=== PATIENT | female | born 1950 ===

== ENCOUNTER 2018-11-14 16:36 | Inpatient (IN) ==
[2018-11-14] MEDS ORDERED: IOPAMIDOL 100 ML BOTTLE IV ONE (16:37)
--- NOTE | 2018-11-14 16:58 | Emergency Department Note ---
Weakness HPI - General Chief complaint: Weakness Stated complaint: weakness Time Seen by Provider: 11/14/18 16:42 Source: patient Mode of arrival: EMS Limitations: no limitations - History of Present Illness HPI Narrative: Brought in by ambulance with a history of generalized weakness. History is obtained from the as well as from the patient. She's had a downhill course in the last several weeks with progressive weakness, right-sided back pa in but not able to do very much other than walk from the bed to the bathroom. According to the she has been in bed mostly for the last few years. History of fairly severe and advanced COPD, quit smoking 2 years ago. Won't put on any weight. When EMS got there today they were unable to get a good reading on the oximeter. She was breathing rapidly. O2 sats were 79% on room air here in the ED. MD Complaint: generalized weakness - Related Data Home Medications Medication Instructions Recorded Confirmed Aspirin/Acetaminophen/Caffeine 1 each PO QDAY 11/14/18 11/14/18 [Excedrin Migraine Caplet] Allergies Allergy/AdvReac Type Severity Reaction Status Date / Time morphine AdvReac Mild Vomiting Verified 11/14/18 18:14 METAL AdvReac Mild RASH Uncoded 02/17/15 03:56 Review of Systems Constitutional: Reports: weakness, weight change. Denies: fever, chills Cardiovascular: Reports: palpitations, dyspnea on exertion Respiratory: Reports: shortness of breath. Denies: cough Past Medical History - Past Medical History Attestation: Yes: The following information was validated with the patient. Source: obtained from family, nursing notes reviewed Medical history: Reports: COPD Surgical history ED: Reports: appendectomy, hysterectomy, tubal ligation, other (surgery for ovarian cyst) Family history: Reports: non-contributory - Social History smoking status: Former smoker Alcohol use: Reports: Rarely Drug use: Reports: none Physical Exam Very frail and weak appearing 68-year-old female brought in by EMS. Limitations: no limitations General appearance: alert Head: atraumatic, normocephalic, normal inspection, other (servin hair and somewhat coarse) Eye: Present: normal appearance, PERRL. Absent: scleral icterus ENT: normal exam, normal oropharynx, mucous membranes dry, other (halitosis and caries) Neck: Present: normal inspection, full ROM Chest: Present: normal inspection, other (Lindsey Tracy thorax, thoracic kyphosis.) Respiratory: Present: respiratory distress, accessory muscle use. Absent: wheez es Cardiovascular: Present: regular rate, normal heart sounds Abdominal: Present: soft. Absent: distention, tenderness, guarding, rebound, rigidity Extremities: Present: full ROM, other (very thin and cachectic appearing and she has a chronic scab and eschar to the right anterior knee). Absent: pedal edema, pretibial edema Back: Present: normal inspection, CVA tenderness (R). Absent: CVA tenderness (L) Neurological: Present: alert, CN II-XII intact, other (very weak in general. Barely able to lift her legs against gravity.). Absent: motor sensory deficit, reflexes normal Psychiatric: Present: normal affect Skin: Present: warm, dry, intact. Absent: rash Course Vital Signs Temperature 98.0 F 11/14/18 16:36 Pulse Rate 105 H 11/14/18 16:36 Respiratory Rate 30 H 11/14/18 16:36 Blood Pressure 146/91 11/14/18 16:36 Pulse Oximetry (%) 90 11/14/18 16:36 Temperature 99.7 F H 11/14/18 17:36 Pulse Rate 112 H 11/14/18 20:16 Respiratory Rate 30 H 11/14/18 19:46 Blood Pressure 109/68 11/14/18 20:46 Pulse Oximetry (%) 93 11/14/18 20:16 Weakness - MDM Narrative Medical decision making narrative: Labs and x-rays reviewed. A CT scan showing atelectasis in the lower lobe, severe pulmonary hypertension, no PE. Cussed with Dr. Jorge. Plan we will treat her with steroids, breathing treatments. Discussed with Dr. Castellano. - Lab Data Result diagrams: 11/14/18 17:17 11/14/18 17:17 Lab Results 11/14/18 11/14/18 11/14/18 Range/Units 17:17 17:17 17:17 WBC 10.7 (4.5-11.0) K/mcL RBC 4.92 (4.00-5.20) M/mcL Hgb 14.6 (12.0-15.0) g/dL Hct 47.0 (36.0-48.0) % MCV 95.5 (80.0-100.0) fL MCH 29.6 (26.0-34.0) pg MCHC 31.0 (31.0-36.0) g/dL RDW 15.6 H (11.5-14.5) % Plt Count 260 (140-440) K/mcL MPV 9.2 (7.4-10.4) fL Gran % 74.5 (38.0-78.0) % Lymph % (Auto) 17.8 (15.5-49.0) % [place] % (Auto) 5.6 (1.0-12.0) % Eos % (Auto) 1.8 (0.0-7.0) % Baso % (Auto) 0.3 (0.0-2.0) % Gran # 8.0 (1.8-8.0) K/mcL Lymph # (Auto) 1.9 (1.5-4.8) K/mcL [place] # (Auto) 0.6 (0.1-0.9) K/mcL Eos # (Auto) 0.2 (0.0-0.7) K/mcL Baso # (Auto) 0 (0.0-0.3) K/mcL Sodium 143 (133-145) mmol/L Potassium 4.8 (3.3-5.1) mmol/L Chloride 103 (96-108) mmol/L Carbon Dioxide 30 (22-30) mmol/L Anion Gap 10.0 (8-16) BUN 14 (8-23) mg/dl Creatinine 0.5 L (0.6-1.1) mg/dl GFR Calculation 101 Glucose 110 H (70-105) mg/dL Calcium 9.6 (8.6-10.4) mg/dl Total Bilirubin 0.5 (0.0-1.0) mg/dL AST 25 (0-37) U/l ALT 6 (0-40) U/l Alkaline Phosphatase 60 (39-117) U/L Troponin T (0-0.03) ng/ml NT-Pro-B Natriuret Pep 4351.0 H (0-125) pg/ml Total Protein 6.9 (5.9-8.4) gm/dL Albumin 3.6 (3.2-5.2) gm/dL Globulin 3.3 (2.2-3.7) gm/dL Albumin/Globulin Ratio 1.1 (1.0-2.3) Procalcitonin < 0.05 (<0.10) ng/mL Urine Color Urine Appearance Urine pH (5.0-9.0) Ur Specific [place] (1.000-1.035) Urine Protein (NEG) mg/dL Urine Glucose (UA) (NEG) mg/dL Urine Ketones (NEG) mg/dL Urine Occult Blood (<0.03) mg/dL Urine Nitrate (NEG) Urine Bilirubin (NEG) mg/dL Urine Urobilinogen (NEG) mg/dL Ur Leukocyte Esterase (NEG) /uL Urine RBC (0-1) /hpf Urine WBC (0-4) /hpf Ur Squamous Epith Cells (0-4) /hpf Ur Transition Epith Cell (0-2) /hpf Amorphous Crystals (0) /hpf Urine Bacteria (0) /hpf Urine Mucus (0) /hpf Ur Culture Indicated? 11/14/18 11/14/18 Range/Units 17:17 19:33 WBC (4.5-11.0) K/mcL RBC (4.00-5.20) M/mcL Hgb (12.0-15.0) g/dL Hct (36.0-48.0) % MCV (80.0-100.0) fL MCH (26.0-34.0) pg MCHC (31.0-36.0) g/dL RDW (11.5-14.5) % Plt Count (140-440) K/mcL MPV (7.4-10.4) fL Gran % (38.0-78.0) % Lymph % (Auto) (15.5-49.0) % [place] % (Auto) (1.0-12.0) % Eos % (Auto) (0.0-7.0) % Baso % (Auto) (0.0-2.0) % Gran # (1.8-8.0) K/mcL Lymph # (Auto) (1.5-4.8) K/mcL [place] # (Auto) (0.1-0.9) K/mcL Eos # (Auto) (0.0-0.7) K/mcL Baso # (Auto) (0.0-0.3) K/mcL Sodium (133-145) mmol/L Potassium (3.3-5.1) mmol/L Chloride (96-108) mmol/L Carbon Dioxide (22-30) mmol/L Anion Gap (8-16) BUN (8-23) mg/dl Creatinine (0.6-1.1) mg/dl GFR Calculation Glucose (70-105) mg/dL Calcium (8.6-10.4) mg/dl Total Bilirubin (0.0-1.0) mg/dL AST (0-37) U/l ALT (0-40) U/l Alkaline Phosphatase (39-117) U/L Troponin T < 0.01 (0-0.03) ng/ml NT-Pro-B Natriuret Pep (0-125) pg/ml Total Protein (5.9-8.4) gm/dL Albumin (3.2-5.2) gm/dL Globulin (2.2-3.7) gm/dL Albumin/Globulin Ratio (1.0-2.3) Procalcitonin (<0.10) ng/mL Urine Color Yellow Urine Appearance Cloudy Urine pH 5.0 (5.0-9.0) Ur Specific [place] 1.020 (1.000-1.035) Urine Protein 100 A (NEG) mg/dL Urine Glucose (UA) Negative (NEG) mg/dL Urine Ketones 5/tr A (NEG) mg/dL Urine Occult Blood >=1.0 A (<0.03) mg/dL Urine Nitrate Neg (NEG) Urine Bilirubin Neg (NEG) mg/dL Urine Urobilinogen 2.0 A (NEG) mg/dL Ur Leukocyte Esterase 25 A (NEG) /uL Urine RBC > 182 H (0-1) /hpf Urine WBC 30 H (0-4) /hpf Ur Squamous Epith Cells 0 (0-4) /hpf Ur Transition Epith Cell 1 (0-2) /hpf Amorphous Crystals Many A (0) /hpf Urine Bacteria Few A (0) /hpf Urine Mucus Mod (0) /hpf Ur Culture Indicated? Yes Disposition Pt seen by ADMINISTRATIVE PROCESSOR/PA only: No Clinical Impression: COPD exacerbation Disposition: Xfer As Inpt ([facility]) Condition: Fair Referrals: Enoch Bui MD [Primary Care Provider] -
[2018-11-14] MEDS ORDERED: LACTATED RINGERS 1,000 ML IV ONE (17:02)
[2018-11-14 17:57] LABS: Basophils # (Auto) 0 K/mcL (0.0-0.3); Basophils % (Auto) 0.3 % (0.0-2.0); Eosinophils # (Auto) 0.2 K/mcL (0.0-0.7); Eosinophils % (Auto) 1.8 % (0.0-7.0); Granulocytes % (Auto) 74.5 % (38.0-78.0); Lymphocytes # (Auto) 1.9 K/mcL (1.5-4.8); Lymphocytes % (Auto) 17.8 % (15.5-49.0); Mean Cell Volume 95.5 fL (80.0-100.0); Monocytes # (Auto) 0.6 K/mcL (0.1-0.9); Monocytes % (Auto) 5.6 % (1.0-12.0); Platelet Count 260 K/mcL (140-440); RBC 4.92 M/mcL (4.00-5.20); Red Cell Distribution Width 15.6 % (11.5-14.5)
[2018-11-14] MEDS ORDERED: IPRATROPIUM/ALBUTEROL 3 ML AMPUL.NEB NEB ONE (18:14)
[2018-11-14 18:23] LABS: ALT/SGPT 6 U/l (0-40); Albumin 3.6 gm/dL (3.2-5.2); Albumin/Globulin Ratio 1.1 (1.0-2.3); Alkaline Phosphatase 60 U/L (39-117); Blood Urea Nitrogen 14 mg/dl (8-23)
--- NOTE | 2018-11-14 19:18 | XRay Report ---
CLINICAL INFORMATION: dyspnea COMPARISON: 05/05/2008 FINDINGS: Films taken in extreme right rotation accentuates the cardiomediastinal silhouette. The pulmonary arteries are mildly enlarged compatible with pulmonary hypertension. Moderate COPD changes are noted. Mild bibasilar atelectasis noted - no definite infiltrate IMPRESSION: Moderate COPD with pulmonary hypertension. Mild bibasilar atelectasis Interpreted and Authenticated by: Jak Zaidi 11/14/18
[2018-11-14 20:52] LABS: Appearance,Urine CLOUDY; Bacteria,Urine FEW /hpf (0); Bilirubin,Urine NEG (NEG); Color,Urine YELLOW; Glucose,Urine (UA) NEGATIVE (NEG); Leukocyte Esterase,Urine 25 /uL (NEG); Mucus,Urine MOD /hpf (0); Protein,Urine 100 mg/dL (NEG); Urine Amorphous Crystals MANY /hpf (0); Urine Blood >=1.0 mg/dL (<0.03); Urine RBC > 182 /hpf (0-1); Urine Squamous Epithelial Cell 0 /hpf (0-4); Urine Transitional Epi Cells 1 /hpf (0-2); Urine WBC 30 /hpf (0-4)
[2018-11-14] MEDS ORDERED: methylPREDNISolone SOD SUCC 40 MG/ML VIAL IV ONE (20:55)
--- NOTE | 2018-11-14 20:55 | Cat Scan Report ---
CLINICAL INFORMATION: Worsening dyspnea COMPARISON: None. TECHNIQUE: 80 cc of Isovue-300 were injected intravenously, and 25 seconds later, 0.625 mm helical slices were obtained from the lung apices through the bases. Following reconstruction, 2.5 mm sagittal, coronal and axial reformations were processed and reviewed at lung, mediastinal and bone windows. 7 mm axial MIPS were also obtained to optimize pulmonary nodule detection. The exam was performed using radiation dose optimization techniques including, but not limited to, automated exposure control, adjustment of the mA and/or kV according to patient size and use of iterative reconstruction technique. FINDINGS: Pulmonary parenchymal windows show severe centrilobular emphysema: There are multiple large bullae within the upper lobes and also scattered about the periphery of both lower and right middle lobes. The lung volumes are elevated and there is wall thickening of the bronchi compatible with chronic bronchitis. Scattered scarring is seen throughout both mid and lower lungs. In the periphery of both upper and lower lobes, there is scattered groundglass attenuation and mild interstitial disease with mild thickening of the interlobular septa. 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 There are no nodules or regional infiltrates. There is mild atelectasis in both posterior dependent lower lobes. No effusions. The heart is mildly enlarged with asymmetric enlargement of the right atrium and ventricle compatible with elevated right heart pressures related to pulmonary hypertension. The central pulmonary arteries are enlarged: main pulmonary artery is 3.4 cm. There is no adenopathy in the mediastinal, hilar or axillary regions. The thyroid is normal. Esophagus is unremarkable. Bones and soft tissues of the chest wall are normal. IMPRESSION: 1. Severe centrilobular emphysema. 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 These are known chronic inflammatory diseases associated with smoking. They may respond to steroid and smoking cessation. 2. Moderate enlargement of the central pulmonary arteries and asymmetric enlargement of the right heart chambers compatible with pulmonary hypertension related to COPD. Interpreted and Authenticated by: Jak Zaidi 11/14/18
[2018-11-14] MEDS ORDERED: cefTRIAXone 1 GM VIAL IV ONE (20:56)
[2018-11-14 20:58] LABS: Free T4 (Free Thyroxine) 1.14 ng/dl (0.7-1.7)
--- NOTE | 2018-11-14 21:16 | Internal Med History&Physical ---
Medical - H&P: [facility] Patient information: Note initiated : 11/14/18 at 9:16 pm Service Date, if different from initiated Date: [] Patient: Yvonne Rapp a 68 y/o F admitted on for weakness. Chief Complaint: [] Chief complaint: SOB History of present illness: Ms. Rapp is a 68 year old F with known history of COPD who lives with her Anurag. She presents to the ER with worsening weakness and progressive shortness of breath over the last couple of weeks. Patient carries a long history of smoking however quit 2 years ago. She does not follow with primary care physician. She is currently on occasional albuterol for shortness of breath. Patient also has associated significant weight loss with a BMI of 12. As per as per and she has been getting worse over the last 6 years with increasing exertional shortness of breath limiting her functional abilities. She has had significant weight loss and currently with a BMI of 12. She has associated dysphagia and also endorses to early satiety. She denies abdominal pain associated with feeding. She had a history of gastric ulcer but over the last 10 years she has not sought any medical attention and discontinued all her medications and has a strong feeling that God will heal her. She occasionally takes Excedrin for headaches. Her dyspnea has progressed to the point she could barely talk prompting her to come to the ER. Initial workup was significant for sats and 79% along with CT chest consistent with emphysema/bronchiolitis.. She denies sick contacts or fever chills, she denies rash or joint pain, she endorses to minimal plaque productive sputum. She does not use oxygen. Review of systems A 10 point review systems was performed and is negative except for as discussed above Medical - H&P: PMH Medical history: Emphysema/COPD History of gastric ulcer Severe weight loss Headache Social history: Over 80 pack history smoking quit in 2017 to Anurag Rapp Retired nurse Medical - H&P: Meds Home Medications Medication Instructions Recorded Confirmed Type Aspirin/Acetaminophen/Caffeine 1 each PO QDAY 11/14/18 11/14/18 History [Excedrin Migraine Caplet] Allergies Allergy/AdvReac Type Severity Reaction Status Date / Time morphine AdvReac Mild Vomiting Verified 11/14/18 18:14 METAL AdvReac Mild RASH Uncoded 02/17/15 03:56 Medical - H&P: Exam - Constitutional Vitals: Temp Pulse Resp BP Pulse Ox 99.7 F H 42 L 30 H 104/63 69 L 11/14/18 17:36 11/14/18 21:01 11/14/18 19:46 11/14/18 21:01 11/14/18 21:01 General appearance: moderate distress, thin Exam: Pupils symmetric Sunken eyes, temporal wasting Oral cavity dry No ear or nose discharge Head normocephalic No lymphadenopathy S1 and S2 regular rhythm Diminished breath sounds in bases, expiratory rhonchi Skin no suspicious lesion, skin full-thickness 5 mm Psych alert cooperative Neuro nonfocal Abdomen soft Medical - H&P: Reslt - Labs CBC & Chem 7: 11/17/18 03:35 11/17/18 03:35 Labs: Short CBC 11/14/18 Range/Units 17:17 WBC 10.7 (4.5-11.0) K/mcL Hgb 14.6 (12.0-15.0) g/dL Hct 47.0 (36.0-48.0) % Plt Count 260 (140-440) K/mcL BMP 11/14/18 17:17 Sodium 143 Potassium 4.8 Chloride 103 Carbon Dioxide 30 BUN 14 Creatinine 0.5 L Glucose 110 H Calcium 9.6 Cardiac Enzymes 11/14/18 Range/Units 17:17 Troponin T < 0.01 (0-0.03) ng/ml Liver Function 11/14/18 Range/Units 17:17 Total Bilirubin 0.5 (0.0-1.0) mg/dL AST 25 (0-37) U/l ALT 6 (0-40) U/l Alkaline Phosphatase 60 (39-117) U/L Albumin 3.6 (3.2-5.2) gm/dL Urine 11/14/18 Range/Units 19:33 Urine Color Yellow Urine Appearance Cloudy Urine pH 5.0 (5.0-9.0) Ur Specific [place] 1.020 (1.000-1.035) Urine Protein 100 A (NEG) mg/dL Urine Glucose (UA) Negative (NEG) mg/dL Medical - H&P: A/P (1) COPD exacerbation Problem details: Improving and responding to treatment. Current visit: Yes Status: Acute * Acute COPD exacerbation-continue steroids, bronchodilators and pulmonary toilet * bronchiolitis-bronchodilators/carbon grinder/antibiotic * Severe weight loss nutrition consult * DVT prophylaxis heparin Plan * COPD management per guidelines * Dietary consult * PT OT eval * Watch for refeeding syndrome * Weight loss workup
[2018-11-14 21:55] LABS: C-Reactive Protein 0.6 mg/dl (0.0-0.8)
[2018-11-14] MEDS ORDERED: MAGNESIUM SULFATE 2 GM/50 ML BAG IV PRN (21:59)
[2018-11-14] MEDS ORDERED: ACETAMINOPHEN 325 MG TABLET PO PRN (21:59)
[2018-11-14] MEDS ORDERED: POTASSIUM CHLORIDE 20 MEQ PACKET PO PRN (21:59)
[2018-11-14] MEDS ORDERED: ONDANSETRON 4 MG/2 ML VIAL IV PRN (21:59)
[2018-11-14] MEDS ORDERED: ACETAMINOPHEN 1,000 MG/100 ML BOTTLE IV PRN (22:55)
[2018-11-14] MEDS: 0.9 % SODIUM CHLORIDE 10 ML SYRINGE IV SCH (22:57)
[2018-11-14] MEDS: IPRATROPIUM/ALBUTEROL 3 ML AMPUL.NEB NEB SCH (23:00)
[2018-11-14] MEDS: LEVOFLOXACIN 750 MG/150 ML BAG IV SCH (23:26)
[2018-11-15 05:07] LABS: Mean Cell Volume 96.5 fL (80.0-100.0); Mean Corpuscular HGB Conc 31.3 g/dL (31.0-36.0); Platelet Count 218 K/mcL (140-440); RBC 4.44 M/mcL (4.00-5.20); Red Cell Distribution Width 15.6 % (11.5-14.5)
[2018-11-15 05:37] LABS: ALT/SGPT 5 U/l (0-40); Albumin 3.2 gm/dL (3.2-5.2); Albumin/Globulin Ratio 1.1 (1.0-2.3); Alkaline Phosphatase 51 U/L (39-117); Bilirubin,Direct < 0.2 mg/dL (0.0-0.3); Blood Urea Nitrogen 12 mg/dl (8-23); Gamma Glutamyl Transpeptidase 19 U/L (5-36)
[2018-11-15] MEDS: IPRATROPIUM/ALBUTEROL 3 ML AMPUL.NEB NEB SCH ×6 (05:40→23:06)
[2018-11-15] MEDS: 0.9 % SODIUM CHLORIDE 10 ML SYRINGE IV SCH ×3 (05:41→20:42)
[2018-11-15 05:45] LABS: Band Neutrophils % 1 % (0-10); Lymphocytes % 6 % (15-49); Platelet Estimate NORMAL (NORMAL); RBC Morphology NORMAL (NORMAL); Segmented Neutrophils % 93 % (38-78)
[2018-11-15] MEDS: ACETAMINOPHEN 1,000 MG/100 ML BOTTLE IV PRN (09:19)
--- NOTE | 2018-11-15 09:23 | Internal Med Progress Note ---
Medical - PN: Subj Patient information: Note initiated : 11/15/18 at 9:21 am Service Date, if different from initiated Date: [] Patient: Yvonne Rapp a 68 y/o F admitted on 11/14/18 for weakness. Chief Complaint: [] Interval history: Ms. Rapp is a 68 year old F who lives with her Anurag. She presents to the ER with worsening weakness/loss of appetite and progressive shortness of breath over the last couple of weeks. Patient carries a long history of smoking however quit 2 years ago. She does not follow with primary care physician. She is currently on occasional albuterol for shortness of breath. As per as per and she has been getting worse over the last 6 years with increasing exertional shortness of breath limiting her functional abilities. She is also dramatically lost weight loss of appetite and currently weighs around 70 pounds. She denies dysphagia but endorses early satiety. She denies abdominal pain associated with feeding. She had a history of gastric ulcer but over the last 10 years she has not sought any medical attention and discontinued all her medications and has a strong feeling that God will heal her. She occasionally takes Excedrin for headaches. Shortness of breath is to the point she could barely talk prompting her to come to the ER. Initial workup was significant for sats and 79% along with CT chest consistent with emphysema/bronchiolitis.. She denies sick contacts or fever chills, she denies rash or joint pain, she endorses to minimal plaque productive sputum. She does not use oxygen. 3/3-persistent shortness of breath. Ongoing bronchodilators. CT evidence of bronchiolitis/emphysema. Nutrition consult. at bedside. Intermittent headache - Constitutional Vitals: Vital Signs Temp Pulse Resp BP Pulse Ox 100.1 F H 102 H 20 85/51 92 11/14/18 21:59 11/15/18 07:19 11/15/18 07:19 11/15/18 04:01 11/15/18 05:39 Period Temp Pulse Resp BP Sys/Trimble Pulse Ox Last 24 Hr 98.0 F-100.1 F 42-117 20-35 85-164/51-121 52-99 Intake and Output 11/14/18 11/15/18 11/15/18 21:59 05:59 13:59 Intake Total 1000 0 Output Total 150 Balance 1000 -150 Weight 68 lb 1.6 oz 68 lb 1.6 oz Intake & Output: Intake & Output 11/14/18 11/15/18 11/15/18 21:59 05:59 13:59 Intake Total 1000 0 Output Total 150 Balance 1000 -150 Weight 68 lb 1.6 oz 68 lb 1.6 oz Intake: IV 1000 Lactated Ringers 1,000 ml @ 1000 Wide Open IV .Q0M ONE Rx#: [id number] Oral 0 0 Output: Void Amount 150 General appearance: moderate distress (headache), thin Exam: Persistent shortness of breath with pursed lip breathing Anxious Prolonged expiratory rhonchi Scaphoid abdomen Medical - PN: Obj Da - Labs CBC & Chem 7: 11/15/18 03:41 11/15/18 03:41 Labs: Abnormal Lab Results 11/15/18 11/15/18 11/14/18 03:41 03:41 19:33 RDW 15.6 H Seg Neutrophils % 93 H Lymphocytes % 6 L Creatinine 0.4 L Glucose NT-Pro-B Natriuret Pep TSH Urine Protein 100 A Urine Ketones 5/tr A Urine Occult Blood >=1.0 A Urine Urobilinogen 2.0 A Ur Leukocyte Esterase 25 A Urine RBC > 182 H Urine WBC 30 H Amorphous Crystals Many A Urine Bacteria Few A 11/14/18 11/14/18 11/14/18 17:17 17:17 17:17 RDW 15.6 H Seg Neutrophils % Lymphocytes % Creatinine 0.5 L Glucose 110 H NT-Pro-B Natriuret Pep 4351.0 H TSH 10.65 H Urine Protein Urine Ketones Urine Occult Blood Urine Urobilinogen Ur Leukocyte Esterase Urine RBC Urine WBC Amorphous Crystals Urine Bacteria Meds: Medications Acetaminophen (Tylenol) 650 mg PO Q4-6HP PRN PRN Reason: PAIN/FEVER > 101 Albuterol/Ipratropium (Duoneb) 3 ml NEB Q4HRT [facility] Last Admin: 11/15/18 07:17 Dose: 3 ml Documented by: Docusate Sodium (Colace) 100 mg PO BID [facility] Heparin Sodium (Porcine) (Heparin) 5,000 unit SQ Q12 [facility] Levofloxacin (Levaquin) 750 mg in 150 mls @ 100 mls/hr IV Q24H [facility] Last Admin: 11/14/18 23:26 Dose: 100 mls/hr Documented by: Magnesium Sulfate (Magnesium Sulfate) 2 gm in 50 mls @ 50 mls/hr IV UD PRN PRN Reason: MG = or < 1.7 Acetaminophen (Ofirmev) 1,000 mg in 100 mls @ 200 mls/hr IV Q6HP PRN PRN Reason: PAIN/FEVER > 101 Last Admin: 11/15/18 09:19 Dose: 200 mls/hr Documented by: Iron Carb/Multivit/Steward/[employer] Car/Folic Acid (Multivitamin W/Minerals) 1 tab PO DAILY [facility] Methylprednisolone Sodium Succinate (Solu-Medrol) 40 mg IV Q12 [facility] Ondansetron HCl (Zofran) 4 mg IV Q4-6HP PRN PRN Reason: Nausea And Vomiting Pantoprazole Sodium (Protonix) 40 mg IV QAMAC [facility] Aspirin/Acetaminophen/Caffeine [Excedrin Migraine] Cap 1 dose PO QDAY [facility] Potassium Chloride (Klor-Con) 40 meq PO DAILYP PRN PRN Reason: K+ < 3.5 Senna/Docusate Sodium (Senna Plus Tablet) 1 tab PO HS [facility] Sodium Chloride (Saline Flush) 10 ml IV Q8 [facility] Last Admin: 11/15/18 05:41 Dose: 10 ml Documented by: Medical - PN: A/P - Time Spent With Patient Total time spent is greater than 50% in coordination of care (as documented) at patient's floor/unit and/or counseling patient: 25 - 35 minutes (1) COPD exacerbation Status: Acute Assessment and plan: * Acute COPD exacerbation-continue IV steroids, bronchodilators and pulmonary toilet * bronchiolitis with interstitial pneumonitis-bronchodilators/IV steroids/antibiotic * Severe weight loss nutrition consult, start PPI, recommend outpatient GI follow-up/endoscopy * Anxiety * DVT prophylaxis heparin Plan * PT OT/nutrition support * COPD management per guidelines Current Visit: Yes Medical - PN: Qual - VTE Deep Vein Thrombosis/Pulmonary Embolism Present on Admission: No
[2018-11-15] MEDS: PANTOPRAZOLE 40 MG VIAL IV SCH (11:41)
[2018-11-15] MEDS: HEPARIN 5,000 UNIT/ML VIAL SQ SCH ×2 (11:41→20:42)
[2018-11-15] MEDS: methylPREDNISolone SOD SUCC 125 MG/2 ML VIAL IV SCH ×2 (11:41→20:41)
[2018-11-15] MEDS: MULTIVIT,THER IRON,CA,FA & MIN 1 TABLET PO SCH (11:57)
[2018-11-15] MEDS: DOCUSATE SODIUM 100 MG CAPSULE PO SCH ×2 (11:58→20:42)
[2018-11-15] MEDS: Aspirin/Acetaminophen/Caffeine [Excedrin Migraine] Cap PO SCH (12:03)
[2018-11-15] MEDS: LEVOFLOXACIN 750 MG/150 ML BAG IV SCH (15:36)
[2018-11-15] MEDS: SENNOSIDES/DOCUSATE SODIUM 1 TAB TABLET PO SCH (20:42)
[2018-11-16] MEDS: IPRATROPIUM/ALBUTEROL 3 ML AMPUL.NEB NEB SCH ×5 (03:24→18:52)
[2018-11-16 05:25] LABS: Mean Cell Volume 96.3 fL (80.0-100.0); Mean Corpuscular HGB Conc 31.9 g/dL (31.0-36.0); Platelet Count 207 K/mcL (140-440); RBC 4.16 M/mcL (4.00-5.20); Red Cell Distribution Width 15.4 % (11.5-14.5)
[2018-11-16] MEDS: 0.9 % SODIUM CHLORIDE 10 ML SYRINGE IV SCH ×3 (05:49→21:31)
[2018-11-16 06:06] LABS: ALT/SGPT 5 U/l (0-40); Albumin 3.3 gm/dL (3.2-5.2); Albumin/Globulin Ratio 1.2 (1.0-2.3); Alkaline Phosphatase 45 U/L (39-117); Bilirubin,Direct < 0.2 mg/dL (0.0-0.3); Blood Urea Nitrogen 15 mg/dl (8-23); Gamma Glutamyl Transpeptidase 16 U/L (5-36); Uric Acid 6.5 mg/dL (2.5-8.0)
[2018-11-16 07:00] LABS: Band Neutrophils % 1 % (0-10); Lymphocytes % 5 % (15-49); Platelet Estimate NORMAL (NORMAL); RBC Morphology NORMAL (NORMAL); Segmented Neutrophils % 94 % (38-78)
[2018-11-16] MEDS: PANTOPRAZOLE 40 MG VIAL IV SCH (07:45)
[2018-11-16] MEDS: methylPREDNISolone SOD SUCC 125 MG/2 ML VIAL IV SCH ×2 (09:13→21:29)
[2018-11-16] MEDS: HEPARIN 5,000 UNIT/ML VIAL SQ SCH ×2 (09:13→21:30)
[2018-11-16] MEDS: Aspirin/Acetaminophen/Caffeine [Excedrin Migraine] Cap PO SCH (09:13)
[2018-11-16] MEDS: LEVOFLOXACIN 750 MG/150 ML BAG IV SCH (09:13)
--- NOTE | 2018-11-16 09:29 | Internal Med Progress Note ---
Medical - PN: Subj Patient information: Note initiated : 11/16/18 at 9:27 am Service Date, if different from initiated Date: [] Patient: Yvonne Rapp a 68 y/o F admitted on 11/14/18 for weakness. Chief Complaint: [] Interval history: Ms. Rapp is a 68 year old F who lives with her Anurag. She presents to the ER with worsening weakness/loss of appetite and progressive shortness of breath over the last couple of weeks. Patient carries a long history of smoking however quit 2 years ago. She does not follow with primary care physician. She is currently on occasional albuterol for shortness of breath. As per as per and she has been getting worse over the last 6 years with increasing exertional shortness of breath limiting her functional abilities. She is also dramatically lost weight loss of appetite and currently weighs around 70 pounds. She denies dysphagia but endorses early satiety. She denies abdominal pain associated with feeding. She had a history of gastric ulcer but over the last 10 years she has not sought any medical attention and discontinued all her medications and has a strong feeling that God will heal her. She occasionally takes Excedrin for headaches. Shortness of breath is to the point she could barely talk prompting her to come to the ER. Initial workup was significant for sats and 79% along with CT chest consistent with emphysema/bronchiolitis.. She denies sick contacts or fever chills, she denies rash or joint pain, she endorses to minimal plaque productive sputum. She does not use oxygen. 3/3-persistent shortness of breath. Ongoing bronchodilators. CT evidence of bronchiolitis/emphysema. Nutrition consult. at bedside. Intermittent headache 3/4-patient doing better this morning. Able to talk in full sentences. Improved shortness of breath. 100 at bedside. No overnight telemetry events. Persistent dysphagia but however able to tolerate applesauce. ST eval/barium swallow ordered placed. Dysmotility/stricture. Would require upper endoscopy. No GI field artillery operations specialist today. We'll try to coordinate outpatient upper endoscopy for further evaluation of dysphagia. Continue physical therapy - Constitutional Vitals: Vital Signs Temp Pulse Resp BP Pulse Ox 97.8 F 100 H 20 107/67 95 11/16/18 08:00 11/16/18 08:00 11/16/18 08:00 11/16/18 08:00 11/16/18 08:00 Period Temp Pulse Resp BP Sys/Trimble Pulse Ox Last 24 Hr 97.8 F-98.4 F 95-112 18-24 87-107/56-68 94-98 Intake and Output 11/15/18 11/16/18 11/16/18 21:59 05:59 13:59 Intake Total 200 0 Output Total 475 Balance -275 0 Weight 69 lb Intake & Output: Intake & Output 11/15/18 11/16/18 11/16/18 21:59 05:59 13:59 Intake Total 200 0 Output Total 475 Balance -275 0 Weight 69 lb Intake: IV 150 Oral 50 0 Output: Void Amount 475 Other: Urine Appearance Clear Urine Color Bright Yellow Urine Odor Normal General appearance: thin Exam: Anxious but nonlabored breathing Supraclavicular retractions/diminished breath sounds bases Tachycardia No telemetry events Medical - PN: Obj Da - Labs CBC & Chem 7: 11/16/18 03:28 11/16/18 03:28 Labs: Abnormal Lab Results 11/16/18 11/16/18 11/15/18 03:28 03:28 03:41 RDW 15.4 H Seg Neutrophils % 94 H Lymphocytes % 5 L Creatinine 0.4 L 0.4 L Glucose NT-Pro-B Natriuret Pep TSH Urine Protein Urine Ketones Urine Occult Blood Urine Urobilinogen Ur Leukocyte Esterase Urine RBC Urine WBC Amorphous Crystals Urine Bacteria 11/15/18 11/14/18 11/14/18 03:41 19:33 17:17 RDW 15.6 H Seg Neutrophils % 93 H Lymphocytes % 6 L Creatinine Glucose NT-Pro-B Natriuret Pep TSH 10.65 H Urine Protein 100 A Urine Ketones 5/tr A Urine Occult Blood >=1.0 A Urine Urobilinogen 2.0 A Ur Leukocyte Esterase 25 A Urine RBC > 182 H Urine WBC 30 H Amorphous Crystals Many A Urine Bacteria Few A 11/14/18 11/14/18 17:17 17:17 RDW 15.6 H Seg Neutrophils % Lymphocytes % Creatinine 0.5 L Glucose 110 H NT-Pro-B Natriuret Pep 4351.0 H TSH Urine Protein Urine Ketones Urine Occult Blood Urine Urobilinogen Ur Leukocyte Esterase Urine RBC Urine WBC Amorphous Crystals Urine Bacteria Meds: Medications Acetaminophen (Tylenol) 650 mg PO Q4-6HP PRN PRN Reason: PAIN/FEVER > 101 Albuterol/Ipratropium (Duoneb) 3 ml NEB Q4HRT [facility] Last Admin: 11/16/18 06:56 Dose: 3 ml Documented by: Docusate Sodium (Colace) 100 mg PO BID [facility] Last Admin: 11/15/18 20:42 Dose: Not Given Documented by: Heparin Sodium (Porcine) (Heparin) 5,000 unit SQ Q12 [facility] Last Admin: 11/16/18 09:13 Dose: 5,000 unit Documented by: Levofloxacin (Levaquin) 750 mg in 150 mls @ 100 mls/hr IV Q24H [facility] Last Admin: 11/16/18 09:13 Dose: 100 mls/hr Documented by: Magnesium Sulfate (Magnesium Sulfate) 2 gm in 50 mls @ 50 mls/hr IV UD PRN PRN Reason: MG = or < 1.7 Acetaminophen (Ofirmev) 1,000 mg in 100 mls @ 200 mls/hr IV Q6HP PRN PRN Reason: PAIN/FEVER > 101 Last Infusion: 11/15/18 10:00 Dose: Infused Documented by: Iron Carb/Multivit/[place]/Folic Acid (Multivitamin W/Minerals) 1 tab PO DAILY [facility] Last Admin: 11/15/18 11:57 Dose: 1 tab Documented by: Methylprednisolone Sodium Succinate (Solu-Medrol) 40 mg IV Q12 [facility] Last Admin: 11/16/18 09:13 Dose: 40 mg Documented by: Ondansetron HCl (Zofran) 4 mg IV Q4-6HP PRN PRN Reason: Nausea And Vomiting Pantoprazole Sodium (Protonix) 40 mg IV QAMAC [facility] Last Admin: 11/16/18 07:45 Dose: 40 mg Documented by: Aspirin/Acetaminophen/Caffeine [Excedrin Migraine] Cap 1 dose PO QDAY [facility] Last Admin: 11/16/18 09:13 Dose: 1 dose Documented by: Potassium Chloride (Klor-Con) 40 meq PO DAILYP PRN PRN Reason: K+ < 3.5 Senna/Docusate Sodium (Senna Plus Tablet) 1 tab PO HS [facility] Last Admin: 11/15/18 20:42 Dose: Not Given Documented by: Sodium Chloride (Saline Flush) 10 ml IV Q8 [facility] Last Admin: 11/16/18 05:49 Dose: 10 ml Documented by: Medical - PN: A/P - Time Spent With Patient Total time spent is greater than 50% in coordination of care (as documented) at patient's floor/unit and/or counseling patient: 25 - 35 minutes (1) COPD exacerbation Status: Acute Assessment and plan: * Acute COPD clinically improving on bronchodilators/IV steroids and pulmonary toilet * bronchiolitis with interstitial pneumonitis-bronchodilators/IV steroids/antibiotic * Severe weight loss nutrition consult, start PPI, recommend outpatient GI follow-up/endoscopy, ST eval/barium * Anxiety * DVT prophylaxis heparin Plan * PT OT/nutrition support * ST eval/barium swallow * GI consult * Transition to oral steroids in 24 hours * COPD management per guidelines Current Visit: Yes Medical - PN: Qual - VTE Deep Vein Thrombosis/Pulmonary Embolism Present on Admission: No
[2018-11-16] MEDS: MULTIVIT,THER IRON,CA,FA & MIN 1 TABLET PO SCH (14:14)
[2018-11-16] MEDS: DOCUSATE SODIUM 100 MG CAPSULE PO SCH ×2 (14:14→21:30)
--- NOTE | 2018-11-16 14:24 | XRay Report ---
HISTORY: Dysphagia with food sticking in the mid chest, large unexplained weight loss FINDINGS: Study was limited due to the patient's weakness and inability to take more than two swallows of barium. There is normal oral and pharyngeal motility. The barium promptly passed through normal esophagus into the stomach without obstruction. There is no hiatus hernia. No intrinsic or extrinsic mass are present and there is no stricture or gross evidence of mucosal ulceration. IMPRESSION: Normal exam Interpreted and Authenticated by: Addison Guerra 11/16/18
--- NOTE | 2018-11-16 18:18 | General Surgery Consult Note ---
History of Present Illness Patient information: Note initiated : 11/16/18 at 6:13 pm Service Date, if different from initiated Date: [] Patient: Yvonne Rapp 68 y/o F admitted on 11/14/18 for weakness. Chief Complaint: [] Consult date: 11/16/18 Requesting physician: Zach Sherman (Wound Right anterior knee) History of present illness: I saw this patient along with Annel SMITH, Inpatient wound care nurse. I reviewed her skin and dermal wound RIGHT anterior knee. This patient has severe COPD and has been NON ADHERENT to regular treatments. She has a long standing history os smoking, limited mobility, chronic malnutrition ( weight loss ) and deconditioning. She was admitted via ER to ICU for acute exacerbation of COPD with severe hypoxia. I saw her and spoke with her family member. Medications and Allergies Home Medications Medication Instructions Recorded Confirmed Type Aspirin/Acetaminophen/Caffeine 1 each PO QDAY 11/14/18 11/14/18 History [Excedrin Migraine Caplet] Allergies Allergy/AdvReac Type Severity Reaction Status Date / Time morphine AdvReac Mild Vomiting Verified 11/14/18 18:14 METAL AdvReac Mild RASH Uncoded 02/17/15 03:56 Exam Temp Pulse Resp BP Pulse Ox 97.7 F 117 H 18 94/61 93 11/16/18 16:07 11/16/18 16:07 11/16/18 16:07 11/16/18 16:07 11/16/18 16:07 - General physical appearance cachectic, other (In moderated respiratory distress. O2 by NC with sats around 90. Tachycaridia.) - Eyes PERRL, normal ocular movement - ENT normal pinna, normal mucosa, no congestion - Head Head exam IM: Present: atraumatic, normal inspection, normocephalic - Neck no masses, no venous distension, other (No flaring of nostrils. ) - Cardiovascular Cardiovascular exam IM: Present: tachycardia - Respiratory wheezing: bilateral - Abdomen Abdomen: Present: soft, non tender, bowel sounds - Integumentary Present: other (DRY chronic, adherent epidermal and dermal eschar over abrasion of skin. Underlying Patella is intact. ) - Neurologic Present: other (No focal neurological deficits. ) - Musculoskeletal Present: other (Bed confined. ) - Psychiatric Present: oriented to person (Cooperative and lucid. Her was in room during examination. ) Results - Labs 11/16/18 03:28 11/16/18 03:28 Abnormal lab results 11/16/18 11/16/18 Range/Units 03:28 03:28 RDW 15.4 H (11.5-14.5) % Seg Neutrophils % 94 H (38-78) % Lymphocytes % 5 L (15-49) % Creatinine 0.4 L (0.6-1.1) mg/dl Diabetes panel 11/16/18 Range/Units 03:28 Sodium 144 (133-145) mmol/L Potassium 4.8 (3.3-5.1) mmol/L Chloride 105 (96-108) mmol/L Carbon Dioxide 27 (22-30) mmol/L BUN 15 (8-23) mg/dl Creatinine 0.4 L (0.6-1.1) mg/dl Glucose 95 (70-105) mg/dL Calcium 9.5 (8.6-10.4) mg/dl AST 23 (0-37) U/l ALT 5 (0-40) U/l Alkaline Phosphatase 45 (39-117) U/L Total Protein 6.1 (5.9-8.4) gm/dL Albumin 3.3 (3.2-5.2) gm/dL Triglycerides 64 (<150) mg/dl Calcium panel 11/16/18 Range/Units 03:28 Calcium 9.5 (8.6-10.4) mg/dl Phosphorus 3.3 (2.7-4.5) mg/dL Albumin 3.3 (3.2-5.2) gm/dL Pituitary panel 11/16/18 Range/Units 03:28 Sodium 144 (133-145) mmol/L Potassium 4.8 (3.3-5.1) mmol/L Chloride 105 (96-108) mmol/L Carbon Dioxide 27 (22-30) mmol/L BUN 15 (8-23) mg/dl Creatinine 0.4 L (0.6-1.1) mg/dl Glucose 95 (70-105) mg/dL Calcium 9.5 (8.6-10.4) mg/dl Adrenal panel 11/16/18 Range/Units 03:28 Sodium 144 (133-145) mmol/L Potassium 4.8 (3.3-5.1) mmol/L Chloride 105 (96-108) mmol/L Carbon Dioxide 27 (22-30) mmol/L BUN 15 (8-23) mg/dl Creatinine 0.4 L (0.6-1.1) mg/dl Glucose 95 (70-105) mg/dL Calcium 9.5 (8.6-10.4) mg/dl Total Bilirubin 0.4 (0.0-1.0) mg/dL AST 23 (0-37) U/l ALT 5 (0-40) U/l Alkaline Phosphatase 45 (39-117) U/L Total Protein 6.1 (5.9-8.4) gm/dL Albumin 3.3 (3.2-5.2) gm/dL All other labs normal. Assessment and Plan (1) Abrasion, right knee, initial encounter Status: Chronic Priority: Low Comment: For Observation and local protective dressings. (2) COPD exacerbation Status: Acute Priority: Medium Comment: Improving and responding to treatment.
[2018-11-16] MEDS: SENNOSIDES/DOCUSATE SODIUM 1 TAB TABLET PO SCH (21:30)
[2018-11-16] MEDS: ACETAMINOPHEN 1,000 MG/100 ML BOTTLE IV PRN (21:57)
[2018-11-17] MEDS: IPRATROPIUM/ALBUTEROL 3 ML AMPUL.NEB NEB SCH ×7 (01:06→22:54)
[2018-11-17] MEDS: 0.9 % SODIUM CHLORIDE 10 ML SYRINGE IV SCH ×3 (05:26→20:47)
[2018-11-17 06:53] LABS: Mean Cell Volume 96.7 fL (80.0-100.0); Mean Corpuscular HGB Conc 31.2 g/dL (31.0-36.0); Platelet Count 236 K/mcL (140-440); RBC 4.36 M/mcL (4.00-5.20)
[2018-11-17] MEDS: PANTOPRAZOLE 40 MG VIAL IV SCH (07:11)
[2018-11-17 07:15] LABS: ALT/SGPT 8 U/l (0-40); Albumin 3.4 gm/dL (3.2-5.2); Albumin/Globulin Ratio 1.3 (1.0-2.3); Alkaline Phosphatase 46 U/L (39-117); Bilirubin,Direct < 0.2 mg/dL (0.0-0.3); Blood Urea Nitrogen 18 mg/dl (8-23); Gamma Glutamyl Transpeptidase 18 U/L (5-36)
[2018-11-17] MEDS: DOCUSATE SODIUM 100 MG CAPSULE PO SCH ×2 (08:27→20:47)
[2018-11-17] MEDS: HEPARIN 5,000 UNIT/ML VIAL SQ SCH ×2 (08:29→20:47)
[2018-11-17] MEDS: methylPREDNISolone SOD SUCC 125 MG/2 ML VIAL IV SCH (08:29)
[2018-11-17] MEDS: MULTIVIT,THER IRON,CA,FA & MIN 1 TABLET PO SCH (08:29)
[2018-11-17] MEDS: Aspirin/Acetaminophen/Caffeine [Excedrin Migraine] Cap PO SCH (08:30)
[2018-11-17] MEDS: LEVOFLOXACIN 750 MG/150 ML BAG IV SCH (08:30)
[2018-11-17 09:23] LABS: Anisocytosis FEW (NONE SEEN); Lymphocytes % 4 % (15-49); Monocytes % (Manual) 2 % (1-12); Platelet Estimate NORMAL (NORMAL); RBC Morphology ABNORM (NORMAL); Segmented Neutrophils % 94 % (38-78)
--- NOTE | 2018-11-17 10:02 | Internal Med Progress Note ---
Medical - PN: Subj Patient information: Note initiated : 11/17/18 at 9:54 am Service Date, if different from initiated Date: [] Patient: Yvonne Rapp a 68 y/o F admitted on 11/14/18 for weakness. Chief Complaint: [] Interval history: Ms. Rapp is a 68 year old F with known history of COPD who lives with her Anurag. She presents to the ER with worsening weakness and progressive shortness of breath over the last couple of weeks. Patient carries a long history of smoking however quit 2 years ago. She does not follow with primary care physician. She is currently on occasional albuterol for shortness of luana ath. Patient also has associated significant weight loss with a BMI of 12. As per as per and she has been getting worse over the last 6 years with increasing exertional shortness of breath limiting her functional abilities. She has had significant weight loss and currently with a BMI of 12. She has associated dysphagia and also endorses to early satiety. She denies abdominal pain associated with feeding. She had a history of gastric ulcer but over the last 10 years she has not sought any medical attention and discontinued all her medications and has a strong feeling that God will heal her. She occasionally takes Excedrin for headaches. Her dyspnea has progressed to the point she could barely talk prompting her to come to the ER. Initial workup was significant for sats and 79% along with CT chest consistent with emphysema/bronchiolitis.. She denies sick contacts or f ever chills, she denies rash or joint pain, she endorses to minimal plaque productive sputum. She does not use oxygen. 3/3-persistent shortness of breath. Ongoing bronchodilators. CT evidence of b ronchiolitis/emphysema. Nutrition consult. at bedside. Intermittent headache 3/4-patient doing better this morning. Able to talk in full sentences. Improved shortness of breath. 100 at bedside. No overnight telemetry events. Persistent dysphagia but however able to tolerate applesauce. ST eval/barium swallow ordered placed. Dysmotility/stricture. Would require upper endoscopy. No GI composite bond technician today. We'll try to coordinate outpatient upper endoscopy for further evaluation of dysphagia. Continue physical therapy 3/5-patient doing better. Was able to tolerate half a sandwich yesterday. Continue aggressive multivitamin/mineral replacement for refeeding prevention. Case discussed with GI and recommended outpatient evaluation in light of chronic symptoms and weight loss over years. We will schedule a follow-up with GI clinic. - Constitutional Vitals: Vital Signs Temp Pulse Resp BP Pulse Ox 97.0 F 96 H 20 98/64 97 11/17/18 07:02 11/17/18 07:32 11/17/18 07:32 11/17/18 07:02 11/17/18 07:32 Period Temp Pulse Resp BP Sys/Trimble Pulse Ox Last 24 Hr 97.0 F-97.8 F 92-117 18-32 90-112/55-71 92-98 Intake and Output 11/16/18 11/17/18 11/17/18 21:59 05:59 13:59 Intake Total 50 250 Output Total 150 150 Balance -100 100 Weight 68 lb 11.2 oz Intake & Output: Intake & Output 11/16/18 11/17/18 11/17/18 21:59 05:59 13:59 Intake Total 50 250 Output Total 150 150 Balance -100 100 Weight 68 lb 11.2 oz Intake: IV 250 Oral 50 Output: Void Amount 150 150 Other: Meal Dinner Percent of Meal Consumed 5 bites Urine Appearance Cloudy Urine Color Light Arielle Urine Odor Strong # Voids 1 General appearance: thin Exam: Alert oriented Nonlabored breathing Tachycardia on telemetry Lower extremity lymphedema nondistended abdomen Medical - PN: Obj Da - Labs CBC & Chem 7: 11/17/18 03:35 11/17/18 03:35 Labs: Abnormal Lab Results 11/17/18 11/17/18 11/16/18 03:35 03:35 03:28 RDW 16.0 H Seg Neutrophils % 94 H Lymphocytes % 4 L RBC Morphology Abnorm A Anisocytosis Few A Creatinine 0.4 L Glucose 109 H NT-Pro-B Natriuret Pep TSH Urine Protein Urine Ketones Urine Occult Blood Urine Urobilinogen Ur Leukocyte Esterase Urine RBC Urine WBC Amorphous Crystals Urine Bacteria 11/16/18 11/15/18 11/15/18 03:28 03:41 03:41 RDW 15.4 H 15.6 H Seg Neutrophils % 94 H 93 H Lymphocytes % 5 L 6 L RBC Morphology Anisocytosis Creatinine 0.4 L Glucose NT-Pro-B Natriuret Pep TSH Urine Protein Urine Ketones Urine Occult Blood Urine Urobilinogen Ur Leukocyte Esterase Urine RBC Urine WBC Amorphous Crystals Urine Bacteria 11/14/18 11/14/18 11/14/18 19:33 17:17 17:17 RDW Seg Neutrophils % Lymphocytes % RBC Morphology Anisocytosis Creatinine 0.5 L Glucose 110 H NT-Pro-B Natriuret Pep 4351.0 H TSH 10.65 H Urine Protein 100 A Urine Ketones 5/tr A Urine Occult Blood >=1.0 A Urine Urobilinogen 2.0 A Ur Leukocyte Esterase 25 A Urine RBC > 182 H Urine WBC 30 H Amorphous Crystals Many A Urine Bacteria Few A 11/14/18 17:17 RDW 15.6 H Seg Neutrophils % Lymphocytes % RBC Morphology Anisocytosis Creatinine Glucose NT-Pro-B Natriuret Pep TSH Urine Protein Urine Ketones Urine Occult Blood Urine Urobilinogen Ur Leukocyte Esterase Urine RBC Urine WBC Amorphous Crystals Urine Bacteria Meds: Medications Acetaminophen (Tylenol) 650 mg PO Q4-6HP PRN PRN Reason: PAIN/FEVER > 101 Albuterol/Ipratropium (Duoneb) 3 ml NEB Q4HRT [facility] Last Admin: 11/17/18 07:31 Dose: 3 ml Documented by: Docusate Sodium (Colace) 100 mg PO BID [facility] Last Admin: 11/17/18 08:27 Dose: Not Given Documented by: Heparin Sodium (Porcine) (Heparin) 5,000 unit SQ Q12 [facility] Last Admin: 11/17/18 08:29 Dose: 5,000 unit Documented by: Levofloxacin (Levaquin) 750 mg in 150 mls @ 100 mls/hr IV Q24H [facility] Last Admin: 11/17/18 08:30 Dose: 100 mls/hr Documented by: Magnesium Sulfate (Magnesium Sulfate) 2 gm in 50 mls @ 50 mls/hr IV UD PRN PRN Reason: MG = or < 1.7 Last Admin: 11/17/18 07:35 Dose: 50 mls/hr Documented by: Acetaminophen (Ofirmev) 1,000 mg in 100 mls @ 200 mls/hr IV Q6HP PRN PRN Reason: PAIN/FEVER > 101 Last Infusion: 11/16/18 22:51 Dose: Infused Documented by: Iron Carb/Multivit/Sweat [place] Sewer/Folic Acid (Multivitamin W/Minerals) 1 tab PO DAILY [facility] Last Admin: 11/17/18 08:29 Dose: 1 tab Documented by: Methylprednisolone Sodium Succinate (Solu-Medrol) 40 mg IV Q12 [facility] Last Admin: 11/17/18 08:29 Dose: 40 mg Documented by: Ondansetron HCl (Zofran) 4 mg IV Q4-6HP PRN PRN Reason: Nausea And Vomiting Pantoprazole Sodium (Protonix) 40 mg IV QAMAC [facility] Last Admin: 11/17/18 07:11 Dose: 40 mg Documented by: Aspirin/Acetaminophen/Caffeine [Excedrin Migraine] Cap 1 dose PO QDAY [facility] Last Admin: 11/17/18 08:30 Dose: 1 dose Documented by: Potassium Chloride (Klor-Con) 40 meq PO DAILYP PRN PRN Reason: K+ < 3.5 Senna/Docusate Sodium (Senna Plus Tablet) 1 tab PO HS [facility] Last Admin: 11/16/18 21:30 Dose: Not Given Documented by: Sodium Chloride (Saline Flush) 10 ml IV Q8 [facility] Last Admin: 11/17/18 05:26 Dose: 10 ml Documented by: Medical - PN: A/P - Time Spent With Patient Total time spent is greater than 50% in coordination of care (as documented) at patient's floor/unit and/or counseling patient: 25 - 35 minutes (1) COPD exacerbation Problem details: Improving and responding to treatment. Status: Acute Assessment and plan: * Acute COPD exacerbation -clinically improving on bronchodilators steroids and pulmonary toilet * bronchiolitis with interstitial pneumonitis -continue antibiotic coverage. Clinically improving * Severe weight loss - continue diet per pharmacy informatics specialist , PPI, negative barium swallow. Recommend outpatient GI follow-up/endoscopy * Anxiety-stable * DVT prophylaxis heparin Plan * PT OT/nutrition support * Outpatient GI consult * Oral steroids * COPD management per guidelines Current Visit: Yes Medical - PN: Qual - VTE Deep Vein Thrombosis/Pulmonary Embolism Present on Admission: No
[2018-11-17] MEDS: predniSONE 20 MG TABLET PO SCH (10:55)
[2018-11-17] MEDS: SENNOSIDES/DOCUSATE SODIUM 1 TAB TABLET PO SCH (20:47)
[2018-11-18] MEDS: IPRATROPIUM/ALBUTEROL 3 ML AMPUL.NEB NEB SCH ×4 (03:10→19:07)
[2018-11-18] MEDS: 0.9 % SODIUM CHLORIDE 10 ML SYRINGE IV SCH ×3 (05:37→20:53)
[2018-11-18 06:43] LABS: Mean Cell Volume 96.2 fL (80.0-100.0); Mean Corpuscular HGB Conc 31.8 g/dL (31.0-36.0); Platelet Count 212 K/mcL (140-440); RBC 4.26 M/mcL (4.00-5.20); Red Cell Distribution Width 15.4 % (11.5-14.5)
[2018-11-18 07:12] LABS: ALT/SGPT 7 U/l (0-40); Albumin 3.5 gm/dL (3.2-5.2); Albumin/Globulin Ratio 1.4 (1.0-2.3); Alkaline Phosphatase 43 U/L (39-117); Bilirubin,Direct < 0.2 mg/dL (0.0-0.3); Blood Urea Nitrogen 17 mg/dl (8-23); Gamma Glutamyl Transpeptidase 19 U/L (5-36); Uric Acid 5.2 mg/dL (2.5-8.0)
--- NOTE | 2018-11-18 08:23 | Internal Med Progress Note ---
Medical - PN: Subj Patient information: Note initiated : 11/18/18 at 8:19 am Service Date, if different from initiated Date: [] Patient: Yvonne Rapp a 68 y/o F admitted on 11/14/18 for weakness. Chief Complaint: [] Interval history: Ms. Rapp is a 68 year old F with known history of COPD who lives with her Anurag. She presents to the ER with worsening weakness and progressive shortness of breath over the last couple of weeks. Patient carries a long history of smoking however quit 2 years ago. She does not follow with primary care physician. She is currently on occasional albuterol for shortness of luana ath. Patient also has associated significant weight loss with a BMI of 12. As per as per and she has been getting worse over the last 6 years with increasing exertional shortness of breath limiting her functional abilities. She has had significant weight loss and currently with a BMI of 12. She has associated dysphagia and also endorses to early satiety. She denies abdominal pain associated with feeding. She had a history of gastric ulcer but over the last 10 years she has not sought any medical attention and discontinued all her medications and has a strong feeling that God will heal her. She occasionally takes Excedrin for headaches. Her dyspnea has progressed to the point she could barely talk prompting her to come to the ER. Initial workup was significant for sats and 79% along with CT chest consistent with emphysema/bronchiolitis.. She denies sick contacts or f ever chills, she denies rash or joint pain, she endorses to minimal plaque productive sputum. She does not use oxygen. 3/3-persistent shortness of breath. Ongoing bronchodilators. CT evidence of b ronchiolitis/emphysema. Nutrition consult. at bedside. Intermittent headache 3/4-patient doing better this morning. Able to talk in full sentences. Improved shortness of breath. 100 at bedside. No overnight telemetry events. Persistent dysphagia but however able to tolerate applesauce. ST eval/barium swallow ordered placed. Dysmotility/stricture. Would require upper endoscopy. No GI bi solutions architect today. We'll try to coordinate outpatient upper endoscopy for further evaluation of dysphagia. Continue physical therapy 3/5-patient doing better. Was able to tolerate half a sandwich yesterday. Continue aggressive multivitamin/mineral replacement for refeeding prevention. Case discussed with GI and recommended outpatient evaluation in light of chronic symptoms and weight loss over years. We will schedule a follow-up with GI clinic. 11/18-patient seen in room along with and [id number], tolerating diet as per dietitian. No shortness of breath or fever. No overnight events. Ongoing physical therapy. Anticipate discharge in 24 hours with outpatient endoscopy scheduled at GI Dr. Veloz. - Constitutional Vitals: Vital Signs Temp Pulse Resp BP Pulse Ox 99.3 F H 100 H 22 107/68 94 11/18/18 03:23 11/18/18 07:21 11/18/18 07:21 11/18/18 03:23 11/18/18 07:21 Period Temp Pulse Resp BP Sys/Trimble Pulse Ox Last 24 Hr 97.0 F-99.3 F 82-108 18-22 94-107/62-69 94-100 Intake and Output 11/17/18 11/18/18 11/18/18 21:59 05:59 13:59 Intake Total 220 640 Output Total 235 125 Balance -15 515 Weight 82 lb 11.2 oz Intake & Output: Intake & Output 11/17/18 11/18/18 11/18/18 21:59 05:59 13:59 Intake Total 220 640 Output Total 235 125 Balance -15 515 Weight 82 lb 11.2 oz Intake: Oral 220 640 Output: Void Amount 235 125 Other: Meal Nourishment/Supplement Percent of Meal Consumed 100% Feeding Ability Assist with Tray Set Up Urine Appearance Clear Urine Color Light Arielle Urine Odor Strong General appearance: no acute distress Exam: Alert and oriented Nonlabored breathing On 2 L oxygen Scaphoid abdomen Minimal lymphedema Medical - PN: Obj Da - Labs CBC & Chem 7: 11/18/18 03:32 11/18/18 03:32 Labs: Abnormal Lab Results 11/18/18 11/18/18 11/17/18 03:32 03:32 03:35 RDW 15.4 H Seg Neutrophils % Lymphocytes % RBC Morphology Anisocytosis Carbon Dioxide 35 H Anion Gap 7.0 L Creatinine 0.4 L Glucose 109 H Phosphorus 2.5 L 11/17/18 11/16/18 11/16/18 03:35 03:28 03:28 RDW 16.0 H 15.4 H Seg Neutrophils % 94 H 94 H Lymphocytes % 4 L 5 L RBC Morphology Abnorm A Anisocytosis Few A Carbon Dioxide Anion Gap Creatinine 0.4 L Glucose Phosphorus Meds: Medications Acetaminophen (Tylenol) 650 mg PO Q4-6HP PRN PRN Reason: PAIN/FEVER > 101 Albuterol/Ipratropium (Duoneb) 3 ml NEB Q6HRT [facility] Docusate Sodium (Colace) 100 mg PO BID [facility] Last Admin: 11/17/18 20:47 Dose: 100 mg Documented by: Heparin Sodium (Porcine) (Heparin) 5,000 unit SQ Q12 [facility] Last Admin: 11/17/18 20:47 Dose: 5,000 unit Documented by: Levofloxacin (Levaquin) 750 mg in 150 mls @ 100 mls/hr IV Q24H [facility] Last Infusion: 11/17/18 10:00 Dose: Infused Documented by: Magnesium Sulfate (Magnesium Sulfate) 2 gm in 50 mls @ 50 mls/hr IV UD PRN PRN Reason: MG = or < 1.7 Last Infusion: 11/17/18 08:35 Dose: Infused Documented by: Acetaminophen (Ofirmev) 1,000 mg in 100 mls @ 200 mls/hr IV Q6HP PRN PRN Reason: PAIN/FEVER > 101 Last Infusion: 11/16/18 22:51 Dose: Infused Documented by: Multivitamins (Thera-Plus) 5 ml PO DAILY [facility] Ondansetron HCl (Zofran) 4 mg IV Q4-6HP PRN PRN Reason: Nausea And Vomiting Pantoprazole Sodium (Protonix) [facility] Last Admin: 11/17/18 07:11 Dose: 40 mg Documented by: Aspirin/Acetaminophen/Caffeine [Excedrin Migraine] Cap 1 dose PO QDAY [facility] Last Admin: 11/17/18 08:30 Dose: 1 dose Documented by: Potassium Chloride (Klor-Con) 40 meq PO DAILYP PRN PRN Reason: K+ < 3.5 [facility] ([facility]) [facility] Last Admin: 11/17/18 10:55 Dose: 20 mg Documented by: Senna/Docusate Sodium (Senna Plus Tablet) 1 tab PO HS [facility] Last Admin: 11/17/18 20:47 Dose: 1 tab Documented by: Sodium Chloride (Saline Flush) 10 ml IV Q8 [facility] Last Admin: 11/18/18 05:37 Dose: 10 ml Documented by: Medical - PN: A/P - Time Spent With Patient Total time spent is greater than 50% in coordination of care (as documented) at patient's floor/unit and/or counseling patient: 15 - 24 minutes (1) COPD exacerbation Problem details: Improving and responding to treatment. Status: Acute Assessment and plan: * Acute exacerbation of COPD -clinically improving on bronchodilators, steroids and pulmonary toilet, patient would likely qualify for home oxygen * bronchiolitis with interstitial pneumonitis -on oral Levaquin. Clinically improving * Severe weight loss -Continue diet per candy maker , PPI, negative barium swallow. TSH 10.4. Recommend outpatient GI follow-up/endoscopy * Anxiety-stable * DVT prophylaxis heparin Plan * Continue nutrition support * reporting coordinator to schedule Outpatient GI consult with Dr. Veloz * Anticipate discharge in 24 hours on oral Levaquin for additional 3 day * Oral steroids for additional 48 hours * Scheduled outpatient primary care physician follow-up for better optimization of health issues with outpatient including hypothyroidism/weight loss/COPD management * Outpatient pulmonary follow-up/PFT Current Visit: Yes Medical - PN: Qual - VTE Deep Vein Thrombosis/Pulmonary Embolism Present on Admission: No
[2018-11-18 08:25] LABS: Lymphocytes % 4 % (15-49); Monocytes % (Manual) 4 % (1-12); Platelet Estimate NORMAL (NORMAL); RBC Morphology NORMAL (NORMAL); Segmented Neutrophils % 92 % (38-78)
[2018-11-18] MEDS: HEPARIN 5,000 UNIT/ML VIAL SQ SCH ×2 (10:09→20:51)
[2018-11-18] MEDS: PANTOPRAZOLE 40 MG VIAL IV SCH (10:09)
[2018-11-18] MEDS: LEVOFLOXACIN 750 MG/150 ML BAG IV SCH (10:09)
[2018-11-18] MEDS: predniSONE 20 MG TABLET PO SCH (10:10)
[2018-11-18] MEDS: DOCUSATE SODIUM 100 MG CAPSULE PO SCH (10:10)
[2018-11-18] MEDS: Aspirin/Acetaminophen/Caffeine [Excedrin Migraine] Cap PO SCH (10:10)
[2018-11-18] MEDS: MULTIVITAMINS,THERAPEUTIC 1 ML ORAL.SOL PO SCH (10:10)
[2018-11-18] MEDS ORDERED: POTASSIUM CHLORIDE 20 MEQ PACKET PO PRN (12:15)
[2018-11-18] MEDS ORDERED: ACETAMINOPHEN 325 MG TABLET PO PRN (12:15)
[2018-11-18] MEDS ORDERED: MAGNESIUM SULFATE 2 GM/50 ML BAG IV PRN (12:15)
[2018-11-18] MEDS ORDERED: ONDANSETRON 4 MG/2 ML VIAL IV PRN (12:15)
[2018-11-18] MEDS ORDERED: ACETAMINOPHEN 1,000 MG/100 ML BOTTLE IV PRN (12:15)
[2018-11-18] MEDS ORDERED: IPRATROPIUM/ALBUTEROL 3 ML AMPUL.NEB NEB SCH (13:00)
[2018-11-18] MEDS: BUDESONIDE 0.5 MG/2 ML AMPUL.NEB NEB SCH (19:07)
[2018-11-18] MEDS: SENNOSIDES/DOCUSATE SODIUM 1 TAB TABLET PO SCH (20:51)
[2018-11-18] MEDS: DOCUSATE SODIUM 20 MG/5 ML ORAL.SOL PO SCH (20:51)
[2018-11-18] MEDS ORDERED: DOCUSATE SODIUM 100 MG CAPSULE PO SCH (21:00)
[2018-11-19] MEDS: IPRATROPIUM/ALBUTEROL 3 ML AMPUL.NEB NEB SCH ×4 (00:54→19:00)
[2018-11-19] MEDS: 0.9 % SODIUM CHLORIDE 10 ML SYRINGE IV SCH ×2 (05:53→15:02)
[2018-11-19 06:12] LABS: Mean Cell Volume 96.2 fL (80.0-100.0); Mean Corpuscular HGB Conc 31.6 g/dL (31.0-36.0); Platelet Count 193 K/mcL (140-440); RBC 4.37 M/mcL (4.00-5.20); Red Cell Distribution Width 15.1 % (11.5-14.5)
[2018-11-19 06:14] LABS: ALT/SGPT 10 U/l (0-40); Albumin 3.5 gm/dL (3.2-5.2); Albumin/Globulin Ratio 1.5 (1.0-2.3); Alkaline Phosphatase 40 U/L (39-117); Bilirubin,Direct < 0.2 mg/dL (0.0-0.3); Blood Urea Nitrogen 10 mg/dl (8-23); Gamma Glutamyl Transpeptidase 18 U/L (5-36); Uric Acid 4.3 mg/dL (2.5-8.0)
[2018-11-19 07:23] LABS: Lymphocytes % 10 % (15-49); Monocytes % (Manual) 4 % (1-12); Platelet Estimate NORMAL (NORMAL); RBC Morphology NORMAL (NORMAL); Segmented Neutrophils % 86 % (38-78)
[2018-11-19] MEDS: PANTOPRAZOLE 40 MG VIAL IV SCH (07:29)
[2018-11-19] MEDS: BUDESONIDE 0.5 MG/2 ML AMPUL.NEB NEB SCH ×2 (08:28→19:00)
[2018-11-19] MEDS: HEPARIN 5,000 UNIT/ML VIAL SQ SCH (08:54)
[2018-11-19] MEDS: predniSONE 20 MG TABLET PO SCH (08:54)
[2018-11-19] MEDS: Aspirin/Acetaminophen/Caffeine [Excedrin Migraine] Cap PO SCH (08:54)
[2018-11-19] MEDS: MULTIVITAMINS,THERAPEUTIC 1 ML ORAL.SOL PO SCH (08:54)
[2018-11-19] MEDS: DOCUSATE SODIUM 20 MG/5 ML ORAL.SOL PO SCH (08:55)
[2018-11-19] MEDS: LEVOFLOXACIN 750 MG/150 ML BAG IV SCH (09:04)
[2018-11-19] MEDS: SERTRALINE 50 MG TABLET PO SCH (11:26)
--- NOTE | 2018-11-19 15:36 | Internal Med Progress Note ---
Medical - PN: Subj Patient information: Note initiated : 11/19/18 at 3:34 pm Service Date, if different from initiated Date: [] Patient: Yvonne Rapp a 68 y/o F admitted on 11/14/18 for weakness. Chief Complaint: [] Interval history: Ms. Rapp is a 68 year old F with known history of COPD who lives with her Anurag. She presents to the ER with worsening weakness and progressive shortness of breath over the last couple of weeks. Patient carries a long history of smoking however quit 2 years ago. She does not follow with primary care physician. She is currently on occasional albuterol for shortness of luana ath. Patient also has associated significant weight loss with a BMI of 12. As per as per and she has been getting worse over the last 6 years with increasing exertional shortness of breath limiting her functional abilities. She has had significant weight loss and currently with a BMI of 12. She has associated dysphagia and also endorses to early satiety. She denies abdominal pain associated with feeding. She had a history of gastric ulcer but over the last 10 years she has not sought any medical attention and discontinued all her medications and has a strong feeling that God will heal her. She occasionally takes Excedrin for headaches. Her dyspnea has progressed to the point she could barely talk prompting her to come to the ER. Initial workup was significant for sats and 79% along with CT chest consistent with emphysema/bronchiolitis.. She denies sick contacts or f ever chills, she denies rash or joint pain, she endorses to minimal plaque productive sputum. She does not use oxygen. 3/3-persistent shortness of breath. Ongoing bronchodilators. CT evidence of b ronchiolitis/emphysema. Nutrition consult. at bedside. Intermittent headache 3/4-patient doing better this morning. Able to talk in full sentences. Improved shortness of breath. 100 at bedside. No overnight telemetry events. Persistent dysphagia but however able to tolerate applesauce. ST eval/barium swallow ordered placed. Dysmotility/stricture. Would require upper endoscopy. No GI preparation plant repairer today. We'll try to coordinate outpatient upper endoscopy for further evaluation of dysphagia. Continue physical therapy 3/5-patient doing better. Was able to tolerate half a sandwich yesterday. Continue aggressive multivitamin/mineral replacement for refeeding prevention. Case discussed with GI and recommended outpatient evaluation in light of chronic symptoms and weight loss over years. We will schedule a follow-up with GI clinic. 11/18-patient seen in room along with and son/[id number], tolerating diet as per dietitian. No shortness of breath or fever. No overnight events. Ongoing physical therapy. Anticipate discharge in 24 hours with outpatient endoscopy scheduled at GI Dr. Veloz. 11/19 pt seen examined, conintues to refuse PT notes gets anxious when trying to eat or drink anything, otherwise feels quite well, I wanted to monitor pt for one more day, but she was initially wanting to go home, refused SNF placement/ Home health. I was planning on setting up discharge, when I was notified that pt would like to stay another day. Pertinent ROS: Denies headache, dizziness Denies chest pain, palpitations Denies cough o, sob present Denies abdominal pain, nausea or vomiting. - Constitutional Vitals: Vital Signs Temp Pulse Resp BP Pulse Ox 97.0 F 92 H 20 113/73 93 11/19/18 11:33 11/19/18 12:49 11/19/18 12:49 11/19/18 11:33 11/19/18 11:33 Period Temp Pulse Resp BP Sys/Trimble Pulse Ox Last 24 Hr 97.0 F-99.1 F 87-98 18-24 94-113/63-73 93-98 Intake and Output 11/19/18 11/19/18 11/19/18 05:59 13:59 21:59 Intake Total 250 90 Output Total 425 250 Balance -175 -160 Intake & Output: Intake & Output 11/19/18 11/19/18 11/19/18 05:59 13:59 21:59 Intake Total 250 90 Output Total 425 250 Balance -175 -160 Intake: Oral 250 90 Output: Void Amount 425 250 Other: Meal Breakfast Percent of Meal Consumed 15 Feeding Ability Assist with Tray Set Up Urine Appearance Clear Urine Color Bright Yellow Urine Odor Normal Exam: Constitutional; Afebrile, cooperative, alert, not in distress. Thin frail malnourshied woman. Respiratory system: Air Entry equal on both sides, Reduced air entry bilatrally, no wheezing noted. CVS- Rate rhythm regular, S1,S2 heard, no gallop, no rub. Abdomen- Soft nontender abdomen, no organomegaly, no tenderness, no guarding or rigidity, PULL TAB DEALER- AOOx3, moving all extremities, no gross focal deficit noted. Medical - PN: Obj Da - Labs CBC & Chem 7: 11/19/18 04:30 11/19/18 04:30 Labs: Abnormal Lab Results 11/19/18 11/19/18 11/18/18 04:30 04:30 03:32 WBC 11.7 H RDW 15.1 H Seg Neutrophils % 86 H Lymphocytes % 10 L RBC Morphology Anisocytosis Carbon Dioxide 37 H 35 H Anion Gap 4.0 L 7.0 L Creatinine 0.4 L 0.4 L Glucose Phosphorus 2.4 L 2.5 L 11/18/18 11/17/18 11/17/18 03:32 03:35 03:35 WBC RDW 15.4 H 16.0 H Seg Neutrophils % 92 H 94 H Lymphocytes % 4 L 4 L RBC Morphology Abnorm A Anisocytosis Few A Carbon Dioxide Anion Gap Creatinine Glucose 109 H Phosphorus Meds: Medications Acetaminophen (Tylenol) 650 mg PO Q4-6HP PRN PRN Reason: PAIN/FEVER > 101 Albuterol/Ipratropium (Duoneb) 3 ml NEB Q6HRT [facility] Last Admin: 11/19/18 12:49 Dose: 3 ml Documented by: Budesonide (Pulmicort) 0.5 mg NEB Q12 [facility] Last Admin: 11/19/18 08:28 Dose: 0.5 mg Documented by: Docusate Sodium (Colace) 100 mg PO BID [facility] Last Admin: 11/19/18 08:55 Dose: Not Given Documented by: Heparin Sodium (Porcine) (Heparin) 5,000 unit SQ Q12 [facility] Last Admin: 11/19/18 08:54 Dose: 5,000 unit Documented by: Acetaminophen (Ofirmev) 1,000 mg in 100 mls @ 200 mls/hr IV Q6HP PRN PRN Reason: PAIN/FEVER > 101 Levofloxacin (Levaquin) 750 mg in 150 mls @ 100 mls/hr IV Q24H [facility] Last Admin: 11/19/18 09:04 Dose: 100 mls/hr Documented by: Magnesium Sulfate (Magnesium Sulfate) 2 gm in 50 mls @ 50 mls/hr IV UD PRN PRN Reason: MG = or < 1.7 Multivitamins (Thera-Plus) 5 ml PO DAILY [facility] Last Admin: 11/19/18 08:54 Dose: 5 ml Documented by: Ondansetron HCl (Zofran) 4 mg IV Q4-6HP PRN PRN Reason: Nausea And Vomiting Pantoprazole Sodium (Protonix) 40 mg IV QAMAC [facility] Last Admin: 11/19/18 07:29 Dose: 40 mg Documented by: Aspirin/Acetaminophen/Caffeine [Excedrin Migraine] Cap 1 dose PO QDAY [facility] Last Admin: 11/19/18 08:54 Dose: Not Given Documented by: Potassium Chloride (Klor-Con) 40 meq PO DAILYP PRN PRN Reason: K+ < 3.5 Prednisone (Prednisone) 20 mg PO [facility] Last Admin: 11/19/18 08:54 Dose: 20 mg Documented by: Senna/Docusate Sodium (Senna Plus Tablet) 1 tab PO HS [facility] Last Admin: 11/18/18 20:51 Dose: Not Given Documented by: Sertraline HCl (Zoloft) 25 mg PO DAILY [facility] Last Admin: 11/19/18 11:26 Dose: 25 mg Documented by: Sodium Chloride (Saline Flush) 10 ml IV Q8 [facility] Last Admin: 11/19/18 15:02 Dose: 10 ml Documented by: Medical - PN: A/P - Time Spent With Patient Total time spent is greater than 50% in coordination of care (as documented) at patient's floor/unit and/or counseling patient: - Narrative A/P Narrative: * Acute exacerbation of COPD -clinically improving on bronchodilators, steroids and pulmonary toilet, patient would likely qualify for home oxygen * bronchiolitis with interstitial pneumonitis -on oral Levaquin. Clinically improving * Severe weight loss -Continue diet per spray operator , PPI, negative barium swal low. TSH 10.4. Recommend outpatient GI follow-up/endoscopy * Anxiety-stable * DVT prophylaxis heparin * Anxiety Plan * Continue nutrition support * financial coordinator to schedule Outpatient GI consult with Dr. Veloz * Anticipate discharge in 24 hours on oral Levaquin for additional 2 day * Oral steroids for additional 48 hours * Scheduled outpatient primary care physician follow-up for better optimization of health issues with outpatient including hypothyroidism/weight loss/COPD management * Start on sertraline for anxiety * Outpatient pulmonary follow-up/PFT * wean off oxygen as tolerated, pulm toilet * may need home oxygen set up Medical - PN: Qual - VTE Deep Vein Thrombosis/Pulmonary Embolism Present on Admission: No
[2018-11-20] MEDS: SENNOSIDES/DOCUSATE SODIUM 1 TAB TABLET PO SCH (00:01)
[2018-11-20] MEDS: 0.9 % SODIUM CHLORIDE 10 ML SYRINGE IV SCH ×3 (00:01→14:27)
[2018-11-20] MEDS: IPRATROPIUM/ALBUTEROL 3 ML AMPUL.NEB NEB SCH ×3 (00:04→13:04)
[2018-11-20 06:57] LABS: Mean Cell Volume 96.2 fL (80.0-100.0); Mean Corpuscular HGB Conc 31.2 g/dL (31.0-36.0); Platelet Count 191 K/mcL (140-440); RBC 4.58 M/mcL (4.00-5.20); Red Cell Distribution Width 15.3 % (11.5-14.5)
[2018-11-20 07:30] LABS: Lymphocytes % 8 % (15-49); Monocytes % (Manual) 4 % (1-12); Platelet Estimate NORMAL (NORMAL); RBC Morphology NORMAL (NORMAL); Segmented Neutrophils % 88 % (38-78)
[2018-11-20 07:44] LABS: ALT/SGPT 12 U/l (0-40); Albumin 3.5 gm/dL (3.2-5.2); Albumin/Globulin Ratio 1.3 (1.0-2.3); Alkaline Phosphatase 48 U/L (39-117); Bilirubin,Direct < 0.2 mg/dL (0.0-0.3); Blood Urea Nitrogen 12 mg/dl (8-23); Gamma Glutamyl Transpeptidase 21 U/L (5-36)
[2018-11-20] MEDS: BUDESONIDE 0.5 MG/2 ML AMPUL.NEB NEB SCH (07:45)
[2018-11-20] MEDS: SERTRALINE 50 MG TABLET PO SCH (08:16)
[2018-11-20] MEDS: predniSONE 20 MG TABLET PO SCH (08:18)
[2018-11-20] MEDS: MULTIVITAMINS,THERAPEUTIC 1 ML ORAL.SOL PO SCH ×2 (08:19→14:27)
[2018-11-20] MEDS: HEPARIN 5,000 UNIT/ML VIAL SQ SCH ×2 (08:20)
[2018-11-20] MEDS: PANTOPRAZOLE 40 MG VIAL IV SCH (08:21)
[2018-11-20] MEDS: DOCUSATE SODIUM 20 MG/5 ML ORAL.SOL PO SCH ×2 (08:21)
[2018-11-20] MEDS: Aspirin/Acetaminophen/Caffeine [Excedrin Migraine] Cap PO SCH (08:22)
[2018-11-20] MEDS: LEVOFLOXACIN 750 MG/150 ML BAG IV SCH (10:55)
--- NOTE | 2018-11-20 12:14 | Discharge Summary ---
Medical - DS: Prov Patient information: Note initiated : 11/20/18 at 12:07 pm Service Date, if different from initiated Date: [] Patient: Yvonne Rapp 68 y/o F admitted on 11/14/18 for weakness. Chief Complaint: [] Date of admission: 11/14/18 21:58 Discharge date: 11/20/18 Primary care physician: Enoch Bui Consults: 11/14/18 Consult to Physician [CONS] Stat Comment: Consulting Provider: Zach Sherman Reason For Exam: Physician to Consult 11/16/18 12:19 Consult to Physician [CONS] Routine Comment: r knee wound Consulting Provider: Solo Galvin Reason For Exam: Physician to Consult Discharging clinician: Dayana Cerna Medical - DS: Meds - Discharge Medications Prescriptions: Budesonide [Pulmicort] 0.5 mg NEB Q12 #60 ampul.neb Ipratropium/Albuterol [Duoneb] 3 ml NEB Q6HRT #120 ampul.neb Levofloxacin [Levaquin] 500 mg PO DAILY #2 tablet Multivit,Ther Iron,Ca,FA & Min [Multivitamin W/Minerals] 1 tab PO DAILY #30 tablet predniSONE [Prednisone] 20 mg PO [facility] #4 tablet Sertraline [Zoloft] 25 mg PO DAILY #30 tablet Active and Home Medications: Home Medications Aspirin/Acetaminophen/Caffeine [Excedrin Migraine Caplet] 1 each PO QDAY 11/14/18 [History Confirmed 11/14/18 Last Taken Unknown] Medical - DS: Hosp Hospital course: Ms. Rapp is a 68 year old F with known history of COPD who lives with her Anurag. She presents to the ER with worsening weakness and progressive shortness of breath over the last couple of weeks. Patient carries a long history of smoking however quit 2 years ago. She does not follow with primary care physician. She is currently on occasional albuterol for shortness of breath. Patient also has associated significant weight loss with a BMI of 12. As per as per and she has been getting worse over the last 6 years with increasing exertional shortness of breath limiting her functional abilities. She has had significant weight loss and currently with a BMI of 12. She has associated dysphagia and also endorses to early satiety. She denies abdominal pain associated with feeding. She had a history of gastric ulcer but over the last 10 years she has not sought any medical attention and discontinued all her medications and has a strong feeling that God will heal her. She occasionally takes Excedrin for headaches. Her dyspnea has progressed to the point she could barely talk prompting her to come to the ER. Initial workup was significant for sats and 79% along with CT chest consistent with emphysema/bronchiolitis.. She denies sick contacts or fever chills, she denies rash or joint pain, she endorses to minimal plaque productive sputum. She does not use oxygen. 3/-persistent shortness of breath. Ongoing bronchodilators. CT evidence of bronchiolitis/emphysema. Nutrition consult. at bedside. Intermittent headache 11/16-patient doing better this morning. Able to talk in full sentences. Improved shortness of breath. 100 at bedside. No overnight telemetry events. Persistent dysphagia but however able to tolerate applesauce. ST eval/barium swallow ordered placed. Dysmotility/stricture. Would require upper endoscopy. No GI motivational speaker today. We'll try to coordinate outpatient upper endoscopy for further evaluation of dysphagia. Continue physical therapy 11/17-patient doing better. Was able to tolerate half a sandwich yesterday. Continue aggressive multivitamin/mineral replacement for refeeding prevention. Case discussed with GI and recommended outpatient evaluation in light of chronic symptoms and weight loss over years. We will schedule a follow-up with GI clinic. 11/18-patient seen in room along with and son/[id number], tolerating diet as per dietitian. No shortness of breath or fever. No overnight events. Ongoing physical therapy. Anticipate discharge in 24 hours with outpatient endoscopy scheduled at GI Dr. Veloz. 11/19 pt seen examined, conintues to refuse PT notes gets anxious when trying to eat or drink anything, otherwise feels quite well, I wanted to monitor pt for one more day, but she was initially wanting to go home, refused SNF placement/ Home health. I was planning on setting up discharge, when I was notified that pt would like to stay another day. 11/20 Pt seen examined, no acute issues, stable for discharge She has declined home health and SNF placement needs outpatient close follow up with her PCP Outpatient GI follow up Oxygen set up Patient is back to baseline clinically, no wheezing 87% on Room air at rest 95% with 2L oxygen via nasal canula Patient will be discharged with 2 L nasal canula oxygen, continuous, at rest and during ambulation In Summary Patient admitted to the hospital with acute COPD exacerbation, and acute on chronic hypoxic respiratory failure. The patient had interstitial pneumonitis on imaging. She was treated with steroids bronchodilators and antibiotics with good clinical response. She would complete a course of antibiotics and a short course of steroids The patient has significant weight loss, has a BMI of 15 and weighs 85 pounds. Patient noted during the hospital stay that she had significant anxiety and felt like the food was getting stuck in mid chest. Patient had a barium swallow done which was normal. GI advised her to follow-up as an outpatient for outpatient endoscopy. On talking with the patient it seems like the patient feels very anxious whenever the food is presented to her, she is also had anxiety issues while she was in the hospital, patient is being started on sertraline 25 mg once a day, seems to be tolerating it well. TSH is also slightly elevated at 10.4, would like to check it again in a few weeks, and consider starting on Synthroid, if indicated. For her Severe COPD, she will be discharged on oxygen 2 L at rest and ambulation Discharge diagnosis: COPD, Malnourishment - Time Spent with Patient Total time spent providing and/or coordinating discharge services: Greater than 30 minutes Medical - DS: Exam - Constitutional Vitals: Vital Signs Temp Pulse Pulse Resp BP Pulse Ox 11/20/18 08:00 94 11/20/18 07:47 86 20 94 11/20/18 07:01 98.3 F 16 98/64 99 11/20/18 04:00 98.6 F 84 18 96/63 99 11/20/18 00:00 98.3 F 96 H 22 104/67 94 11/19/18 20:00 98 F 104 H 26 H 97/62 94 11/19/18 18:57 100 H 20 96 11/19/18 18:56 97 H 20 11/19/18 16:00 98.0 F 101 H 24 H 110/76 94 11/19/18 12:49 92 H 20 Intake and Output 11/19/18 11/20/18 11/20/18 21:59 05:59 13:59 Output Total 600 300 Balance -600 -300 Output: Void Amount 600 300 Other: Meal Breakfast Percent of Meal Consumed 25% Urine Appearance Clear Clear Urine Color Light Arielle Light Arielle # Voids 2 Weight 85 lb Patient Weight 11/21/18 05:59 Weight 85 lb Additional comments: Constitutional; Afebrile, cooperative, alert, not in distress. thin frail lady, Respiratory system: Air Entry equal on both sides, decreased air entry bilaterally, No crackles or wheezing, no rhonchi. CVS- Rate rhythm regular, S1,S2 heard, no gallop, no rub. Abdomen- Soft nontender abdomen, no organomegaly, no tenderness, no guarding or rigidity, DIRECTOR OF [employer] EDUCATION- AOOx3, moving all extremities, no gross focal deficit noted. Medical - DS: Data Labs on day of discharge: Labs from last 24 hours 11/20/18 11/20/18 04:50 04:50 WBC 11.8 H RBC 4.58 Hgb 13.8 Hct 44.1 MCV 96.2 MCH 30.1 MCHC 31.2 RDW 15.3 H Plt Count 191 MPV 9.9 Total Counted 100 Seg Neutrophils % 88 H Band Neutrophils % Not Reportable Lymphocytes % 8 L Monocytes % (Manual) 4 Platelet Estimate Normal RBC Morphology Normal Sodium 140 Potassium 4.2 Chloride 97 Carbon Dioxide 37 H Anion Gap 6.0 L BUN 12 Creatinine 0.5 L GFR Calculation 101 Glucose 76 Uric Acid 4.0 Calcium 9.4 Phosphorus 2.6 L Magnesium 1.9 Total Bilirubin 0.5 Direct Bilirubin < 0.2 GGT 21 AST 35 ALT 12 Alkaline Phosphatase 48 Lactate Dehydrogenase 220 Total Protein 6.2 Albumin 3.5 Globulin 2.7 Albumin/Globulin Ratio 1.3 Triglycerides 102 Medical - DS: A/P - Patient/Caregiver Discharge Instructions Activity: increase activity as tolerated Diet: Regular Diet Additional Instructions: Follow up with PCP in 1 week Follow up [address] Dr Edgardo LOVE, in 2-4 weeks Follow up with Pulmonary provider in 3-4 weeks Please make sure you are eating well, I have started you on anti anxiety medication, sertraline, your PCP will further adjust dose of this medication if needed. go to the ER if worsening condition, chest pain, worsening shortness of breath, fever or any other acute concern. - Follow up Plan Follow up with: Enoch Bui MD [Primary Care Provider] - 11/26/18 2:30 pm (Please arrive 15 min. early. Bring your photo ID and Insurance card with you.) Jak Reynoso MD [Physician] - (You are scheduled for an EGD with Dr. Reynoso at [facility] outpatient on December 10 @ 11:45. They will contact you before this to confirm. If you have any questions call ) Atul Perez MD [Physician] - Disposition: Home, Self-Care Prognosis: Fair Rehab Potential: Fair I certify that the patient requires SNF services: No Overall status at discharge: patient is progressing back to baseline Medical - DS: Qual - VTE Deep Vein Thrombosis/Pulmonary Embolism Present on Admission: No
== END 2018-11-20 14:25 | disposition home or self-care (01) | DRG 190 ==
LOC: ED 16:36 → ICU 21:58 → MEDSUR 11-18 17:09
PROVIDERS: ADMIT Internal Medicine; ATTEND Internal Medicine